=== PATIENT | male | born 2000 | race Two or more races ===

== ENCOUNTER 2023-05-31 23:14 | Emergency (ER) | payer MEDICAID ==
[~2023-05-31] VITALS: Ht 188 cm; Wt 70.0 kg
[2023-06-01] MEDS ORDERED: HALOPERIDOL LACTATE 5MG/ML VIAL IM ONE (00:30)
[2023-06-01] MEDS ORDERED: DIPHENHYDRAMINE 50MG/ML VIAL IM ONE (00:30)
[2023-06-01] MEDS ORDERED: MIDAZOLAM HCL 2 MG/2 ML VIAL IM ONE (00:30)
[2023-06-01 01:41] LABS: BASOPHILS % 0.4 % (0.0-2.0); HEMATOCRIT. 47.2 % (42.0-52.0); HEMOGLOBIN. 16.6 g/dL (14.0-18.0); MEAN CORPUSCULAR HEMOGLOBIN 31.1 pg (28.0-32.0); MEAN CORPUSCULAR HGB CONC 35.1 g/dL (31.0-37.0); MEAN CORPUSCULAR VOLUME 88.7 fL (80.0-94.0); MEAN PLATELET VOLUME 7.8 fl (7.4-10.4); MONOCYTES % 8.4 % (2.0-8.0); NEUTROPHILS % 74.2 % (40.0-76.0); PLATELET 412 x1000/uL (130-400); RED BLOOD CELL COUNT 5.32 mill/uL (4.7-6.1); WHITE BLOOD COUNT 10.8 x1000/uL (4.5-11.0)
[2023-06-01 01:42] LABS: GLUCOSE URINE NEGATIVE (NEGATIVE); KETONES URINE TRACE (NEGATIVE)
[2023-06-01 01:55] LABS: *AMPHETAMINES SCREEN URINE PRESUMPTIVE POSITIVE (NEGATIVE); *BARBITURATES SCREEN URINE NEGATIVE (NEGATIVE); *BENZODIAZEPINES SCREEN URINE NEGATIVE (NEGATIVE); *COCAINE SCREEN URINE NEGATIVE (NEGATIVE); CANNABINOID URINE SCREEN NEGATIVE (NEGATIVE); ECSTASY MDMA SCREEN URINE CONF.TEST INDICATED (NEGATIVE); METHADONE URINE SCREEN Neg (NEGATIVE); OPIATES URINE SCREEN NEGATIVE (NEGATIVE); PHENCYCLIDINE URINE SCREEN NEGATIVE (NEGATIVE)
[2023-06-01 02:30] VITALS: O2SAT 98
[2023-06-01 02:37] LABS: ACETAMINOPHEN < 2 ug/mL (10-30); ALANINE AMINOTRANSFERASE 14 IU/L (10-49); ALBUMIN 4.7 g/dL (3.2-4.8); ASPARTATE AMINOTRANSFERASE 22 IU/L (<34); BILIRUBIN TOTAL 1.6 mg/dL (0.1-1.0); CALCIUM 10.3 mg/dL (8.7-10.4); CARBON DIOXIDE 23 mEq/L (21-32); CHLORIDE 103 mEq/L (98-107); CREATININE 1.3 mg/dL (0.6-1.3); GLUCOSE 70 mg/dL (70-105); POTASSIUM 4.2 mEq/L (3.5-5.1); PROTEIN TOTAL 8.4 g/dL (6.0-8.3); SODIUM 138 mEq/L (136-145); UREA NITROGEN BLOOD 18 mg/dL (9-23)
[2023-06-01 02:39] LABS: ETHANOL BLOOD < 10 mg/dL (<10)
[2023-06-01 02:44] LABS: CLARITY URINE CLEAR (CLEAR); COLOR URINE YELLOW (YELLOW); LEUKOCYTE ESTERASE URINE NEGATIVE (NEGATIVE); NITRITE URINE NEGATIVE (NEGATIVE); OCCULT BLOOD URINE 1+ (NEGATIVE); PROTEIN URINE 1+ (NEGATIVE); SPECIFIC GRAVITY URINE 1.034 (1.005-1.030); UROBILINOGEN URINE 1 E.U./dL (0.2-1.0)
[2023-06-01 02:45] LABS: BACTERIA URINE TRACE; SQUAMOUS EPITHELIAL CELL URINE FEW /lpf (RARE/1+)
[2023-06-01] MEDS: OLANZAPINE 10MG TABLET PO SCH ×2 (11:45→17:00)
[2023-06-02] MEDS: OLANZAPINE 10MG TABLET PO SCH ×2 (09:00→17:14)
[2023-06-03] MEDS: OLANZAPINE 10MG TABLET PO SCH (09:00)
[2023-06-03 11:27] VITALS: BP 128/71; PULSE 74; RESP 15; TEMP 98.4
== END 2023-06-03 11:58 ==
LOC: ER 23:14
DX: R45.851 Suicidal ideations (principal); F12.10 Cannabis abuse, uncomplicated; F19.90 Other psychoactive substance use, unspecified, uncomplicated; F15.10 Other stimulant abuse, uncomplicated; Z20.822 Contact with and (suspected) exposure to COVID-19; Z00.00 Encounter for general adult medical examination without abnormal findings; Z86.59 Personal history of other mental and behavioral disorders
CPT/HCPCS: 80053; 80305; 81003; 80307; 80329; 80320; 85025; 36415; 99285; 87426; 96372; J1200; J1630; J2250; G0480